=== PATIENT | male | born 1945 | race Caucasian/White ===

== ENCOUNTER 2025-08-30 12:15 | Inpatient (IN) | payer MEDICARE ==
[2025-08-30 13:46] LABS: PLATELET COUNT,PLT 107 K/uL (130-375); RED BLOOD CELL COUNT 3.28 M/uL (4.14-5.76); WHITE BLOOD CELL COUNT,WBC 5.5 K/uL (3.2-11.0)
[2025-08-30 14:14] LABS: A/G RATIO 0.8 (1.2-2.2); ALANINE AMINOTRANSFERASE,ALT 28 U/L (12-78); ASPARTATE AMNIOTRANSFERASE,AST 31 U/L (15-37); BILIRUBIN TOTAL 0.7 mg/dL (0.2-1.0); BLOOD UREA NITROGEN,BUN 54 mg/dL (7-18); CARBON DIOXIDE,CO2 24 mmol/L (21-32); CHLORIDE,CL 104 mmol/L (100-108); CREATININE 2.1 mg/dL (0.8-1.3); EST CRCL DRUG DOSING (CG) 28.00 mL/min; ESTIMATED GFR 31 mL/min (>60); GLUCOSE RANDOM 135 mg/dL (74-106); POTASSIUM,K 3.9 mmol/L (3.6-5.2); PROTEIN TOTAL,TP 5.3 g/dL (6.4-8.2); SODIUM,NA 138 mmol/L (140-148)
[2025-08-30 14:19] LABS: TROPONIN I HIGH SENSITIVITY 126.4 pg/mL (<=60.3)
[2025-08-30 14:23] LABS: BAND ABSOLUTE MAN 1.32 K/uL; BAND PERCENT MAN 24 % (5-11); EOSINOPHILS ABSOLUTE MAN 0.06 K/uL (0.00-0.40); EOSINOPHILS PERCENT MAN 1 % (2-4); LYMPHOCYTES ABSOLUTE MAN 0.28 K/uL (0.8-3.3); LYMPHOCYTES PERCENT MAN 5 % (24-44); MONOCYTES ABSOLUTE MAN 0.28 K/uL (0.20-0.90); MONOCYTES PERCENT MAN 5 % (2-6); NEUTROPHILS ABSOLUTE MAN 3.58 K/uL (1.0-7.6); SEG NEUTROPHILS PERCENT MAN 65 % (36-66)
[2025-08-30 16:26] LABS: APPEARANCE,URINE SLIGHTLY CLOUDY (CLEAR); GLUCOSE,URINE NEGATIVE (NEGATIVE); OCCULT BLOOD,URINE TRACE-INTACT (NEGATIVE)
[2025-08-30 16:33] LABS: SQUAMOUS EPITHELIAL CELLS,UR RARE /HPF; UROTHELIAL CELLS,URINE NOT SEEN /HPF
[2025-08-30] MEDS ORDERED: Ondansetron 4 MG/2 ML SDV IV PRN (18:00)
[2025-08-30] MEDS ORDERED: Ondansetron 4 MG Tab.DIS PO PRN (18:00)
[2025-08-30] MEDS ORDERED: Sennosides/Docusate Sodium 50-8.6 MG Tab PO PRN (18:00)
[2025-08-31 05:50] LABS: PLATELET COUNT,PLT 100.0 K/uL (130-375); RED BLOOD CELL COUNT 3.28 M/uL (4.14-5.76); WHITE BLOOD CELL COUNT,WBC 4.6 K/uL (3.2-11.0)
[2025-08-31 06:08] LABS: BLOOD UREA NITROGEN,BUN 47.0 mg/dL (7-18); CARBON DIOXIDE,CO2 24.0 mmol/L (21-32); CHLORIDE,CL 104.0 mmol/L (100-108); CREATININE 1.6 mg/dL (0.8-1.3); EST CRCL DRUG DOSING (CG) 36.75 mL/min; ESTIMATED GFR 43.0 mL/min (>60); GLUCOSE RANDOM 103.0 mg/dL (74-106); POTASSIUM,K 3.7 mmol/L (3.6-5.2); SODIUM,NA 137.0 mmol/L (140-148)
[2025-08-31] MEDS: Iopamidol 755 Mg/ML 100 ML Bottle IV SCH (10:31)
[2025-08-31] MEDS: Sodium Chloride 0.9% 10 ML Syringe FLUSH PRN (10:31)
== END 2025-08-31 15:22 | disposition home or self-care (01) | DRG 682 ==
LOC: JP.ED 12:15 → JP.MS 17:43
PROVIDERS: ADMIT Internal Medicine; ATTEND Internal Medicine
DX: N17.9 Acute kidney failure, unspecified (principal); I26.99 Other pulmonary embolism without acute cor pulmonale; I82.412 Acute embolism and thrombosis of left femoral vein; E86.0 Dehydration; I10 Essential (primary) hypertension; R79.89 Other specified abnormal findings of blood chemistry; H54.7 Unspecified visual loss; E78.00 Pure hypercholesterolemia, unspecified; Z96.659 Presence of unspecified artificial knee joint; Z85.46 Personal history of malignant neoplasm of prostate; Z79.01 Long term (current) use of anticoagulants; Z79.1 Long term (current) use of non-steroidal anti-inflammatories (NSAID); Z79.899 Other long term (current) drug therapy
CPT/HCPCS: 36415; 71046; 71046-26; 71250; 71250-26; 71275; 71275-26; 80048; 80053; 81001; 83605; 84484; 85025; 85027; 85379; 86140; 87428-QW; 93005; 93010; 93971-26-LT; 93971-LT; 99223; 99238; J1650; J7030; Q9967